=== PATIENT | male | born 1945 | race Caucasian/White ===

== ENCOUNTER → 2016-10-29 | Outpatient (CLI) | payer MEDICARE, BC, OTHER ==
--- NOTE | 2016-10-29 12:43 | RAD ---
Renal ultrasound, 10/29/2016: History: Gross hematuria The right kidney measures 11.1 cm in length while the left kidney measures 11.2 cm. Three simple cysts are present on the right. The largest of these measures 5.2 cm and arises from the lower pole. There is a 4.5 cm cyst arising from the upper pole of the right kidney. A single 3.6 cm simple cyst is identified arising from the medial aspect of the left kidney. The renal parenchymal echogenicity is otherwise normal. There is no evidence of hydronephrosis. Limited views of the urinary bladder show no abnormality. IMPRESSION: 1. Bilateral renal cysts. 2. The renal ultrasound is otherwise unremarkable.
== END | disposition home or self-care (01) ==
LOC: US 09:29
PROVIDERS: ATTEND Nurse Practitioner Family
DX: N28.1 Cyst of kidney, acquired (principal); R31.0 Gross hematuria
CPT/HCPCS: 76770

== ENCOUNTER 2021-10-21 00:29 | Emergency (ER) | payer MEDICARE, BC, OTHER ==
[~2021-10-21] VITALS: Ht 177.8 cm; Wt 88.0 kg
--- NOTE | 2021-10-21 00:59 | PHYS DOC ---
Past History Past Medical History: Arthritis, CAD, CHF, CVA, Diabetes, Hypertension, Renal Disease, Renal Failure, UTI Past Surgical History: Pacemaker, Other Past Surgical History urostomy General Adult EDM: Chief Complaint: MECHANICAL FALL HPI: HPI: "..I was getting into my jammies.. and fell on this Lt. hip.. I cant put weight on it.. too tender.. " "I could do with some pain meds.." Patient is a 89 year old sex who presents with above hx of trip and fall and complaints of Lt hip pain. Patient localizes pain to left hip. His left leg is shortened and any movement exacerbates pain in left hip. Patient distal sensation appears to be intact and capillary refill equal to his right foot. Pt. follows at [facility] for most of his care. Does have a past medical history of CHF, kidney disease, CVA, urostomy, renal failure, DM, arthritis, and deconditioning. Patient does live with his . No recent travel. No specific ill contacts. Does occasionally drink alcohol. Has completed 3 COVID vaccinations with Moderna. Review of Systems: Review of Systems: Constitutional: Denies fever or chills Eyes: Denies change in visual acuity HENT: Denies nasal congestion or sore throat Respiratory: Denies cough or shortness of breath Cardiovascular: Denies chest pain or edema GI: Denies abdominal pain, nausea, vomiting, bloody stools or diarrhea : Denies dysuria Musculoskeletal: Complaints of trip and fall and severe left hip pain Integument: Denies rash Neurologic: Denies headache, focal weakness or sensory changes Endocrine: Denies polyuria or polydipsia Lymphatic: Denies swollen glands Psychiatric: Denies depression or anxiety Family History: Family History: Noncontributory to presentation Current Medications: Current Meds: See nursing for home meds Allergies: Allergies: Allergies Coded Allergies Type Severity Reaction Last Updated Verified No Known Drug Allergies 10/21/21 No Physical Exam: PE: Constitutional: in acute distress, non-toxic appearance. [] HENT: Normocephalic, atraumatic, bilateral external ears normal, oropharynx moist, no oral exudates, nose normal. [] Eyes: PERRLA, EOMI, conjunctiva normal, no discharge. [] Neck: Normal range of motion, no tenderness, supple, no stridor. [] Cardiovascular: Bradycardic heart rate regular rhythm, no murmur [] Lungs & Thorax: Bilateral breath sounds equal apex with scattered wheezes basilar crackles on auscultation [] Pacemaker. Abdomen: Bowel sounds normal, soft, no tenderness, no masses, no pulsatile masses. Obese. Urostomy. Old surgery scars. Skin: Warm, diaphoretic, no erythema, no rash. [] Back: No tenderness, no CVA tenderness. [] Extremities: No tenderness, no cyanosis, no clubbing, ROM intact, no edema. Except and left hip. Neurologic: Alert and oriented X 3, moves all extremities on request but limited with left hip, appears to have distal sensory, no focal deficits noted. [] Psychologic: Affect anxious, judgement normal, mood normal. [] EKG: EKG: My interpretation EKG shows a sinus bradycardia at 60 bpm. Leftward axis. Anterior septal changes. Atypical inferior changes. Abnormal EKG. But no findings of acute STEMI with contralateral changes. Time of EKG is 158 hours [] Radiology/Procedures: Radiology/Procedures: [address] [id number] IMAGING REPORT Signed PATIENT: DONNA BURNHAM LACCOUNT: [id number] : 1945 LOCATION: ER AGE: 76 SEX: M EXAM STATUS: REG ER ORD. PHYSICIAN: DEE RAMIREZ MD REASON: Fall, chest pain PROCEDURE: PORTABLE CHEST 1V XR CHEST 1V History: Chest pain. Fall. Comparison: None. Technique: Portable AP radiograph of the chest. Findings: The lungs are adequately inflated. There is a left chest dual-chamber cardiac pacemaker. No focal airspace consolidation, pleural effusion or pneumothorax. Cardiac mediastinal silhouette and pulmonary vasculature are within normal limits. Degenerative changes of the shoulders. Soft tissues are unremarkable. Impression: 1. No acute cardiopulmonary process. Electronically signed by: Ross Escamilla MD (10/21/2021 2:22 AM) [facility] DICTATED AND SIGNED BY: ROSS ESCAMILLA MD DATE: 10/21/21 0219 CC: DEE RAMIREZ MD; PCP,UNKNOWN ~ [][address] [id number] IMAGING REPORT Signed PATIENT: DONNA BURNHAM LACCOUNT: [id number] : 1945 LOCATION: ER AGE: 76 SEX: M EXAM STATUS: REG ER ORD. PHYSICIAN: DEE RAMIREZ MD REASON: Fall, lower back and left hip pain PROCEDURE: CT PELVIS WO CONTRAST CT LUMBAR SPINE WO, CT PELVIS WO History: Fall, lower back and left hip pain. Technique: Noncontrast CT was performed of the pelvis and lumbar spine. Multiplanar reconstructions were performed. Comparison: None Findings: Diffusely decreased osseous mineralization of the lumbar spine and pelvis. There are 5 nonrib-bearing lumbar type vertebral bodies. Normal alignment. No acute lumbar spine fracture. Unilateral right L5 pars articularis defect. Multilevel degenerative changes in the lumbar spine with facet hypertrophy and disc disease greatest at L4-L5 and L5-S1. No significant spinal canal stenosis. Mild bilateral neural foraminal stenosis at L4-L5. There is an acute mildly comminuted and displaced intertrochanteric fracture of the left femur. The femoral acetabular joints are normally aligned. The pubic rami are intact. Atherosclerotic calcification of the aorta. No aneurysm. Bilateral pelvic sidewall surgical clips. Prostatectomy changes. Large right renal cyst. Right midabdomen ostomy. Impression: 1. Acute intertrochanteric fracture of the left femur with mild displacement and comminution. 2. Degenerative changes without acute finding in the lumbar spine. Exposure: One or more of the following individualized dose reduction techniques were utilized for this examination: 1. Automated exposure control 2. Adjustment of the mA and/or kV according to patient size 3. Use of iterative reconstruction technique. Electronically signed by: Ross Escamilla MD (10/21/2021 2:19 AM) [facility] DICTATED AND SIGNED BY: ROSS ESCAMILLA MD DATE: 10/21/21207 CC: DEE RAMIREZ MD; PCP,UNKNOWN ~ Heart Score: C/O Chest Pain: No HEART Score for Chest Pain: HEART Score for Chest Pain Response (Comments) Value History Moderately Suspicious 1 ECG Nonspecific Repolarizatio 1 Age > 65 2 Risk Factors 1 or 2 Risk Factors 1 Troponin >1-<3x Normal Limit 1 Total 6 Risk Factors: Risk Factors: DM, Current or recent (<one month) smoker, HTN, HLP, family history of CAD, obesity. Risk Scores: Score 0 - 3: 2.5% MACE over next 6 weeks - Discharge Home Score 4 - 6: 20.3% MACE over next 6 weeks - Admit for Clinical Observation Score 7 - 10: 72.7% MACE over next 6 weeks - Early Invasive Strategies Course & Med Decision Making: Course & Med Decision Making Pertinent Labs and Imaging studies reviewed. (See chart for details) \\ Discussed presentation, testing and treatment plan with Dr. Samayoa. Will accept patient in transfer to [facility]. Discussed presentation testing and treatment plan with he will consult on the fractured left hip. Bulk splinting of hip Lt. leg. Impression: 1. Trip and fall 2. Acute inner trochanteric fracture left hip-mild displacement 3. Anemia hemoglobin 10.3-with macrocytic indices of 104 4. Malnutrition albumin 2.6 5. Bradycardia 6. History of CHF-BNP elevated 4401 7. History of renal insufficiency-BUN 36 creatinine 3.1 8. History of diabetes [] Dragon Disclaimer: Dragon Disclaimer: This electronic medical record was generated, in whole or in part, using a voice recognition dictation system. Departure Departure: Referrals: MUKUND JACOME MD (PCP) Dragon Disclaimer This chart was dictated in whole or in part using Voice Recognition software in a busy, high-work load, and often noisy Emergency Department environment. It may contain unintended and wholly unrecognized errors or omissions. Dragon Disclaimer This chart was dictated in whole or in part using Voice Recognition software in a busy, high-work load, and often noisy Emergency Department environment. It may contain unintended and wholly unrecognized errors or omissions. DEE RAMIREZ MD Oct 21, 2021 00:59
[2021-10-21] MEDS ORDERED: MORPHINE SULFATE 10 MG/ML SYRINGE. SQ ONE (01:15)
[2021-10-21] MEDS ORDERED: IV RINGERS SOLUTION,LACTATED 1,000 ML IV SCH (01:15)
[2021-10-21 02:01] LABS: BASO # 0.1 x10^3/uL (0.0-0.2); BASO % 1 % (0-3); EOS # 0.3 x10^3/uL (0.0-0.7); EOS % 5 % (0-3); HEMATOCRIT 31.5 % (39.0-53.0); HEMOGLOBIN 10.3 g/dL (13.0-17.5); LYMPH # 0.5 x10^3/uL (1.0-4.8); LYMPH % 8 % (24-48); MEAN CORPUSCULAR HEMOGLOBIN 34 pg (25-35); MEAN CORPUSCULAR HGB CONC 33 g/dL (31-37); MEAN CORPUSCULAR VOLUME 104 fL (79-100); MONO # 0.4 x10^3/uL (0.0-1.1); MONO % 7 % (0-9); NEUT # 5.3 x10^3uL (1.8-7.7); NEUT % 79 % (31-73); PLATELET COUNT 209 x10^3/uL (140-400); RED BLOOD COUNT 3.03 x10^6/uL (4.30-5.70); RED CELL DISTRIBUTION WIDTH 13.6 % (11.5-14.5); WHITE BLOOD COUNT 6.7 x10^3/uL (4.0-11.0)
--- NOTE | 2021-10-21 02:11 | EKG ---
[address] [address] Test Date: 2021-10-21 Test Time: 01:58:45 Pat Name: DONNA BURNHAM Department: Room: Gender: M [employer]: : 1945 Requested By: DEE RAMIREZ Order Number: [id number] Reading MD: Dean Wetahers MD Measurements Intervals [place] Rate: 60 P: NC: QRS: -12 QRSD: 100 T: 28 QT: 486 QTc: 486 Interpretive Statements SINUS BRADYCARDIA Electronically Signed On 10-23-2021 17:54:43 CDT by Dean Weathers MD
[2021-10-21 02:15] LABS: INFLUENZA A PATIENT NEGATIVE (NEGATIVE); INFLUENZA B PATIENT NEGATIVE (NEGATIVE)
[2021-10-21 02:16] LABS: CALCIUM 8.1 mg/dL (8.5-10.1); CREATININE 3.1 mg/dL (0.7-1.3); GFR 19.7; POTASSIUM 4.5 mmol/L (3.5-5.1)
--- NOTE | 2021-10-21 02:21 | RAD ---
CT LUMBAR SPINE WO, CT PELVIS WO History: Fall, lower back and left hip pain. Technique: Noncontrast CT was performed of the pelvis and lumbar spine. Multiplanar reconstructions w ere performed. Comparison: None Findings: Diffusely decreased osseous mineralization of the lumbar spine and pelvis. There are 5 nonrib-bearing lumbar type vertebral bodies. Normal alignment. No acute lumbar spine fracture. Unilateral right L5 pars articularis defect. Multilevel degenerative changes in the lumbar spine with facet hypertrophy a nd disc disease greatest at L4-L5 and L5-S1. No significant spinal canal stenosis. Mild bilateral andres ral foraminal stenosis at L4-L5. There is an acute mildly comminuted and displaced intertrochanteric fracture of the left femur. The f emoral acetabular joints are normally aligned. The pubic rami are intact. Atherosclerotic calcification of the aorta. No aneurysm. Bilateral pelvic sidewall surgical clips. Pr ostatectomy changes. Large right renal cyst. Right midabdomen ostomy. Impression: 1. Acute intertrochanteric fracture of the left femur with mild displacement and comminution. 2. Degenerative changes without acute finding in the lumbar spine. Exposure: One or more of the following individualized dose reduction techniques were utilized for thi s examination: 1. Automated exposure control 2. Adjustment of the mA and/or kV according to patient size 3. Use of iterative reconstruction technique. Electronically signed by: Ross Vazquez MD (10/21/2021 2:19 AM) [facility]
--- NOTE | 2021-10-21 02:24 | RAD ---
XR CHEST 1V History: Chest pain. Fall. Comparison: None. Technique: Portable AP radiograph of the chest. Findings: The lungs are adequately inflated. There is a left chest dual-chamber cardiac pacemaker. No focal air space consolidation, pleural effusion or pneumothorax. Cardiac mediastinal silhouette and pulmonary v asculature are within normal limits. Degenerative changes of the shoulders. Soft tissues are unremark able. Impression: 1. No acute cardiopulmonary process. Electronically signed by: Ross Vazquez MD (10/21/2021 2:22 AM) [facility]
[2021-10-21 02:29] LABS: MAGNESIUM 1.9 mg/dL (1.8-2.4); TOTAL BILIRUBIN 0.2 mg/dL (0.2-1.0); TOTAL PROTEIN 5.6 g/dL (6.4-8.2)
[2021-10-21 02:49] LABS: ALBUMIN 2.6 g/dL (3.4-5.0); DIRECT BILIRUBIN 0.1 mg/dL (0.0-0.2)
[2021-10-21 02:54] LABS: BARBITURATES NEG (NEG); BENZODIAZEPINES NEG (NEG); CANNABINOIDS POS (NEG); COCAINE NEG (NEG); METHADONE NEG (NEG); OPIATES NEG (NEG); PHENCYCLIDINE NEG (NEG)
[2021-10-21 02:56] LABS: AMPHETAMINE/METHAMPHETAMINE NEG (NEG)
[2021-10-21 03:06] VITALS: BP 86/45
[2021-10-21 03:28] LABS: CLARITY,URINE CLOUDY; COLOR,URINE YELLOW; GLUCOSE,URINE NEG (NEG)
[2021-10-21 03:29] LABS: AMORPHOUS SEDIMENT,UR PRESENT /HPF; BACTERIA,URINE MANY /HPF (0-FEW); NITRITE,URINE NEG (NEG); SQUAMOUS EPITHELIAL CELL,UR FEW /LPF; UROBILINOGEN,URINE 0.2 mg/dL (0.2 mg/dL); WBC,URINE 20-40 /HPF (0-4)
== END 2021-10-21 03:06 | disposition short-term general hospital (02) ==
LOC: ER 00:29
DX: S72.092A Other fracture of head and neck of left femur, initial encounter for closed fracture (principal); D64.9 Anemia, unspecified; E46 Unspecified protein-calorie malnutrition; R00.1 Bradycardia, unspecified; I13.10 Hypertensive heart and chronic kidney disease without heart failure, with stage 1 through stage 4 chronic kidney disease, or unspecified chronic kidney disease; E11.22 Type 2 diabetes mellitus with diabetic chronic kidney disease; N18.9 Chronic kidney disease, unspecified; M19.90 Unspecified osteoarthritis, unspecified site; I25.10 Atherosclerotic heart disease of native coronary artery without angina pectoris; Z20.822 Contact with and (suspected) exposure to COVID-19; Z68.27 Body mass index [BMI] 27.0-27.9, adult; Z86.73 Personal history of transient ischemic attack (TIA), and cerebral infarction without residual deficits; Z87.440 Personal history of urinary (tract) infections; Z95.0 Presence of cardiac pacemaker; W01.0XXA Fall on same level from slipping, tripping and stumbling without subsequent striking against object, initial encounter; Y93.89 Activity, other specified; Y92.89 Other specified places as the place of occurrence of the external cause; Y99.8 Other external cause status
CPT/HCPCS: 36415; 71045; 72131; 72192; 80048; 80076; 80307; 81001; 82550; 83735; 83880; 84443; 84484; 85025; 85610; 85730; 87086; 87428; 93005; 96360; 96372; 99285; J2270; J7120